=== PATIENT | male | born 1985 | race Caucasian/White ===

== ENCOUNTER 2017-04-25 13:58 | Emergency (ER) | payer BC ==
[~2017-04-25] VITALS: Ht 170.2 cm; Wt 97.5 kg
[2017-04-25 14:03] VITALS: BP 146/87
== END 2017-04-25 16:06 | disposition home or self-care (01) ==
LOC: ER 14:04
DX: M79.672 Pain in left foot (principal); I10 Essential (primary) hypertension; Z88.1 Allergy status to other antibiotic agents; W20.8XXA Other cause of strike by thrown, projected or falling object, initial encounter; Y93.89 Activity, other specified; Y92.89 Other specified places as the place of occurrence of the external cause; Y99.8 Other external cause status
CPT/HCPCS: 73630; 99284; A4606; Z7610